=== PATIENT | female | born 1995 | race Caucasian/White ===

== ENCOUNTER → 2020-09-13 13:43 | Outpatient (CLI) | payer BC, SELFPAY ==
--- NOTE | ~2020-09-13 | US_ITS ---
EXAMINATION: US pelvic complete EXAM DATE: 09/13/2020 14:06 INDICATION: Pelvic pain. TECHNIQUE: Pelvic transabdominal sonogram was performed. There are multiple grayscale and Doppler im ages available for interpretation. There is no prior study for comparison. FINDINGS: Uterus measures 6.9 x 3.1 x 3.7 cm, with IUD centrally located inside the endometrial cavi ty. Endometrial stripe measures 7 mm, within normal limits. There is no free pelvic fluid. Right adnexa: The ovary measures 3.6 x 2.9 x 2.8 cm and is morphologically normal. Ovarian vascular f low confirmed. Left adnexa: The ovary measures 2.5 x 3.2 x 2.8 cm and is morphologically normal. Ovarian vascular fl ow confirmed. IMPRESSION: Unremarkable pelvic ultrasound exam. Reviewed, dictated and finalized at location [facility]. [facility]
== END ==
PROVIDERS: Visit Provider Nurse Practitioner
DX: R10.2 Pelvic and perineal pain (principal)
CPT/HCPCS: 76856